=== PATIENT | male | born 1980 | race Two or more races ===

== ENCOUNTER 2021-03-22 15:59 | Emergency (ER) | payer OTHER ==
[~2021-03-22] VITALS: Ht 172.7 cm; Wt 90.0 kg
[2021-03-22 16:02] VITALS: BP 118/85
[2021-03-22] MEDS ORDERED: IV NORMAL SALINE 1,000ML 1,000 ML IV ONE (16:30)
--- NOTE | 2021-03-22 16:32 | PHYS DOC ---
Past History Past Surgical History: No Surgical History (JAY PHOENIX APRN) General Adult EDM: Chief Complaint: DEHYDRATION HPI: HPI: Patient is a 40-year-old male who presents to the ER today for muscle cramps. Patient reports that he works outside and is unsure if he had enough fluids today. Around 1330 patient started having cramping in his lower extremities and it slowly progressed to cramping in his hands. Patient denies any pain or cramping currently, syncope, nausea, vomiting, headache, chest pain, shortness of breath. (JAY PHOENIX APRN) Review of Systems: Review of Systems: 14 body systems of the review of systems have been reviewed. See HPI for pertinent positive and negative responses, otherwise all other systems are negative, nonpertinent or noncontributory (JAY PHOENIX APRN) Current Medications: Current Meds: Current Medications Medications (Trade) Dose Ordered Sig/Shiloh Start Time Stop Time Status Last Admin Dose Admin Sodium Chloride 1,000 ml @ 1,000 mls/hr 1X ONCE 03/22/21 16:30 03/22/21 17:29 03/22/21 16:21 1,000 MLS/HR (JAY PHOENIX APRN) Allergies: Allergies: Allergies Coded Allergies Type Severity Reaction Last Updated Verified Penicillins Allergy Unknown 03/22/21 Yes (JAY PHOENIX APRN) Physical Exam: PE: Constitutional: Well developed, well nourished, no acute distress, non-toxic appearance. [] HENT: Normocephalic, atraumatic, bilateral external ears normal, oropharynx moist, no oral exudates, nose normal. [] Eyes: PERRL, conjunctiva normal, no discharge. [] Neck: Normal range of motion, no stridor Cardiovascular:Heart rate regular rhythm, no murmur [] Lungs & Thorax: Bilateral breath sounds clear to auscultation [] Abdomen: Bowel sounds normal, soft, no tenderness, no masses, no pulsatile masses. [] Skin: Warm, dry, no erythema, no rash. [] Back: Normal range of motion Extremities: No tenderness, no cyanosis, no clubbing, ROM intact, no edema, patient is ambulatory with a steady gait.. [] Neurologic: Alert and oriented X 3, normal motor function, normal sensory function, no focal deficits noted. [] Psychologic: Affect normal, judgement normal, mood normal. [] (JAY PHOENIX INORGANIC CHEMISTRY PROFESSOR) Current Patient Data: Labs: Laboratory Tests Test 03/22/21 16:12 03/22/21 16:39 03/22/21 17:56 White Blood Count 12.8 x10^3/uL Red Blood Count 4.85 x10^6/uL Hemoglobin 15.4 g/dL Hematocrit 44.9 % Mean Corpuscular Volume 92 fL Mean Corpuscular Hemoglobin 32 pg Mean Corpuscular Hemoglobin Concent 34 g/dL Red Cell Distribution Width 13.8 % Platelet Count 258 x10^3/uL Neutrophils (%) (Auto) 77 % Lymphocytes (%) (Auto) 13 % Monocytes (%) (Auto) 10 % Eosinophils (%) (Auto) 1 % Basophils (%) (Auto) 0 % Neutrophils # (Auto) 9.8 x10^3uL Lymphocytes # (Auto) 1.6 x10^3/uL Monocytes # (Auto) 1.2 x10^3/uL Eosinophils # (Auto) 0.1 x10^3/uL Basophils # (Auto) 0.0 x10^3/uL Sodium Level 137 mmol/L 137 mmol/L Potassium Level 4.1 mmol/L 4.8 mmol/L Chloride Level 100 mmol/L 101 mmol/L Carbon Dioxide Level 23 mmol/L 25 mmol/L Anion Gap 14 11 Blood Urea Nitrogen 23 mg/dL 21 mg/dL Creatinine 2.0 mg/dL 1.5 mg/dL Estimated GFR (Cockcroft-Gault) 37.6 52.4 BUN/Creatinine Ratio 12 Glucose Level 95 mg/dL 87 mg/dL Calcium Level 10.4 mg/dL 10.1 mg/dL Total Bilirubin 0.3 mg/dL Aspartate Amino Transf (AST/SGOT) 30 U/L Alanine Aminotransferase (ALT/SGPT) 62 U/L Alkaline Phosphatase 107 U/L Total Protein 7.3 g/dL Albumin 4.2 g/dL Albumin/Globulin Ratio 1.4 Urine Collection Type Unknown Urine Color Mallika Urine Clarity Turbid Urine pH 5.5 Urine Specific Iaeger >=1.030 Urine Protein 30 mg/dl Urine Glucose (UA) Neg mg/dL Urine Ketones (Stick) 15 mg/dL Urine Blood Neg Urine Nitrite Neg Urine Bilirubin Small Urine Urobilinogen Dipstick 0.2 mg/dL Urine Leukocyte Esterase Neg Urine RBC 0 /HPF Urine WBC 0 /HPF Urine Squamous Epithelial Cells Few /LPF Urine Bacteria 0 /HPF Current Medications Medications (Trade) Dose Ordered Sig/Shiloh Route PRN Reason Start Time Stop Time Status Last Admin Dose Admin Sodium Chloride 1,000 ml @ 1,000 mls/hr 1X ONCE IV 03/22/21 16:30 03/22/21 17:29 DC 03/22/21 16:21 Laboratory Tests Test 03/22/21 16:12 03/22/21 16:39 White Blood Count 12.8 x10^3/uL Red Blood Count 4.85 x10^6/uL Hemoglobin 15.4 g/dL Hematocrit 44.9 % Mean Corpuscular Volume 92 fL Mean Corpuscular Hemoglobin 32 pg Mean Corpuscular Hemoglobin Concent 34 g/dL Red Cell Distribution Width 13.8 % Platelet Count 258 x10^3/uL Neutrophils (%) (Auto) 77 % Lymphocytes (%) (Auto) 13 % Monocytes (%) (Auto) 10 % Eosinophils (%) (Auto) 1 % Basophils (%) (Auto) 0 % Neutrophils # (Auto) 9.8 x10^3uL Lymphocytes # (Auto) 1.6 x10^3/uL Monocytes # (Auto) 1.2 x10^3/uL Eosinophils # (Auto) 0.1 x10^3/uL Basophils # (Auto) 0.0 x10^3/uL Sodium Level 137 mmol/L Potassium Level 4.1 mmol/L Chloride Level 100 mmol/L Carbon Dioxide Level 23 mmol/L Anion Gap 14 Blood Urea Nitrogen 23 mg/dL Creatinine 2.0 mg/dL Estimated GFR (Cockcroft-Gault) 37.6 BUN/Creatinine Ratio 12 Glucose Level 95 mg/dL Calcium Level 10.4 mg/dL Total Bilirubin 0.3 mg/dL Aspartate Amino Transf (AST/SGOT) 30 U/L Alanine Aminotransferase (ALT/SGPT) 62 U/L Alkaline Phosphatase 107 U/L Total Protein 7.3 g/dL Albumin 4.2 g/dL Albumin/Globulin Ratio 1.4 Urine Collection Type Unknown Urine Color Mallika Urine Clarity Turbid Urine pH 5.5 Urine Specific Iaeger >=1.030 Urine Protein 30 mg/dl Urine Glucose (UA) Neg mg/dL Urine Ketones (Stick) 15 mg/dL Urine Blood Neg Urine Nitrite Neg Urine Bilirubin Small Urine Urobilinogen Dipstick 0.2 mg/dL Urine Leukocyte Esterase Neg Urine RBC 0 /HPF Urine WBC 0 /HPF Urine Squamous Epithelial Cells Few /LPF Urine Bacteria 0 /HPF Current Medications Medications (Trade) Dose Ordered Sig/Shiloh Route PRN Reason Start Time Stop Time Status Last Admin Dose Admin Sodium Chloride 1,000 ml @ 1,000 mls/hr 1X ONCE IV 03/22/21 16:30 03/22/21 17:29 DC 03/22/21 16:21 Vital Signs: Vital Signs Date Time Temp Pulse Resp B/P (MAP) Pulse Ox O2 Delivery O2 Flow Rate FiO2 03/22/21 16:02 95 18 118/85 99 Room Air (JAY PHOENIX APRN) EKG: EKG: [] (JAY PHOENIX APRN) Radiology/Procedures: Radiology/Procedures: [] (JAY PHOENIX APRN) Heart Score: C/O Chest Pain: No Risk Factors: Risk Factors: DM, Current or recent (<one month) smoker, HTN, HLP, family history of CAD, obesity. Risk Scores: Score 0 - 3: 2.5% MACE over next 6 weeks - Discharge Home Score 4 - 6: 20.3% MACE over next 6 weeks - Admit for Clinical Observation Score 7 - 10: 72.7% MACE over next 6 weeks - Early Invasive Strategies (JAY PHOENIX APRN) Course & Med Decision Making: Course & Med Decision Making Pertinent Labs and Imaging studies reviewed. (See chart for details) Patient is a 40-year-old male being seen in the ER for muscle cramps following heat exposure. Lab work was performed in the ER. Lab work was unremarkable. Patient was treated in the ER with a liter of normal saline. Patient has elevated creatinine. BMP rechecked following liter of fluids. Creatinine decreased from 2.0-1.5. Patient advised to increase fluids at home. I discusse d with patient all findings and diagnostic testing as well as the need to follow-up with PCP for further evaluation and treatment or return to the ER if any new or worsening symptoms. Strict return precautions were also discussed at length. Patient voiced understanding and agreement with the plan. Patient is hemodynamically stable at the time of disposition. (JAY PHOENIX APRN) Dragon Disclaimer: Dragon Disclaimer: This electronic medical record was generated, in whole or in part, using a voice recognition dictation system. (JAY PHOENIX APRN) Attending Co-Sign The patient was seen and interviewed as well as examined at the bedside. The chart was reviewed. The case was discussed. Agree with the plan of care. (JASON RUIZ DO) Departure Departure: Impression: Primary Impression: Dehydration Disposition: 01 HOME / SELF CARE / HOMELESS Condition: GOOD Patient Instructions: Dehydration, Adult Additional Instructions: You were seen in the ER today for muscle cramps following heat exposure. As we discussed, your kidney function was elevated like you were dehydrated. It had decreased after the IV fluids. Please ensure that you are increasing your fluids especially when you are in the heat. Please follow-up with your primary care provider tomorrow regarding your ER visit today. If your symptoms worsen or you develop shortness of breath, chest pain, lightheadedness, nausea, vomiting please return to the ER immediately. EMERGENCY DEPARTMENT GENERAL DISCHARGE INSTRUCTIONS Thank you for coming to [facility] (ED) today and trusting us with you care. We trust that you had a positivie experience in our Emergency Department. If you wish to speak to the department management, you may call the director at [phone]. YOUR FOLLOW UP INSTRUCTIONS ARE FOLLOWS: 1. Do you have a private Doctor? If you do not have a private doctor, please ask for a resource list of physicians or clinics that may be able to assist you with follow up care. 2. The Emergency Physician has interpreted your x-rays. The X-Ray specialist will also review them. If there is a change in the findings, you will be notified in 48 hours when at all possible. 3. A lab test or culture has been done, your results will be reviewed and you will be notified if you need a change in treatment. ADDITIONAL INSTRUCTIONS AND INFORMATION: 1. Your care today has been supervised by a physician who is specially trained in emergency care. Many problems require more than one evaluation for a complete diagnosis and treatment. We recommend that you schedule your follow up appointment as recommended to ensure complete treatment of you illness or injury. If you are unable to obtain follow up care and continue to have a problem, or if your condition worsens, we recommend that you return to the ED. 2. We are not able to safely determine your condition over the phone nor are we able to give sound medical advice over the phone. For these safety reasons, if you call for medical advice we will ask you to come to the ED for further evaluation. 3. If you have any questions regarding these discharge instructions please call the ED at [phone]. SAFETY INFORMATION: In the interest of safety, wellness, and injury prevention; we encourage you to wear your sealbelt, if you smoke; quite smoking, and we encourage family to use a protective helmet for bicycling and other sporting events that present an increased risk for head injury. IF YOUR SYMPTOMS WORSEN OR NEW SYMPTOMS DEVELOP, OR YOU HAVE CONCERNS ABOUT YOUR CONDITION; OR IF YOUR CONDITION WORSENS WHILE YOU ARE WAITING FOR YOUR FOLLOW UP APPOINTMENT; EITHER CONTACT YOUR PRIMARY CARE DOCTOR, THE PHYSICIAN WHOSE NAME AND NUMBER YOU WERE GIVEN, OR RETURN TO THE ED IMMEDIATELY. JAY PHOENIX APRN Mar 22, 2021 16:32 JASON RUIZ DO Mar 23, 2021 06:05
[2021-03-22 16:43] LABS: BASO % 0 % (0-3); EOS # 0.1 x10^3/uL (0.0-0.7); EOS % 1 % (0-3); HEMATOCRIT 44.9 % (39.0-53.0); HEMOGLOBIN 15.4 g/dL (13.0-17.5); LYMPH # 1.6 x10^3/uL (1.0-4.8); LYMPH % 13 % (24-48); MEAN CORPUSCULAR HEMOGLOBIN 32 pg (25-35); MEAN CORPUSCULAR HGB CONC 34 g/dL (31-37); MEAN CORPUSCULAR VOLUME 92 fL (79-100); MONO # 1.2 x10^3/uL (0.0-1.1); MONO % 10 % (0-9); NEUT # 9.8 x10^3uL (1.8-7.7); NEUT % 77 % (31-73); PLATELET COUNT 258 x10^3/uL (140-400); RED BLOOD COUNT 4.85 x10^6/uL (4.30-5.70); RED CELL DISTRIBUTION WIDTH 13.8 % (11.5-14.5); WHITE BLOOD COUNT 12.8 x10^3/uL (4.0-11.0)
[2021-03-22 16:45] LABS: CALCIUM 10.4 mg/dL (8.5-10.1); GFR 37.6; POTASSIUM 4.1 mmol/L (3.5-5.1)
[2021-03-22 16:50] LABS: ALBUMIN 4.2 g/dL (3.4-5.0); ALBUMIN/GLOBULIN RATIO 1.4 (1.0-1.7); TOTAL BILIRUBIN 0.3 mg/dL (0.2-1.0); TOTAL PROTEIN 7.3 g/dL (6.4-8.2)
[2021-03-22 17:12] LABS: BACTERIA,URINE 0 /HPF (0-FEW); BILIRUBIN,URINE SMALL (NEG); CLARITY,URINE TURBID; COLOR,URINE AMBER; GLUCOSE,URINE NEG (NEG); NITRITE,URINE NEG (NEG); RBC,URINE 0 /HPF (0-2); SQUAMOUS EPITHELIAL CELL,UR FEW /LPF; UROBILINOGEN,URINE 0.2 mg/dL (0.2 mg/dL); WBC,URINE 0 /HPF (0-4)
[2021-03-22 18:20] LABS: CALCIUM 10.1 mg/dL (8.5-10.1); CREATININE 1.5 mg/dL (0.7-1.3); GFR 52.4; POTASSIUM 4.8 mmol/L (3.5-5.1)
== END 2021-03-22 18:45 | disposition home or self-care (01) ==
LOC: ER 15:59
DX: E86.0 Dehydration (principal); R25.2 Cramp and spasm; Z88.0 Allergy status to penicillin
CPT/HCPCS: 36415; 80048; 80053; 81001; 85025; 99283; J7030